=== PATIENT | male | born 1970 | race Caucasian/White ===

== ENCOUNTER 2019-07-03 09:04 | Emergency (ER) | payer MEDICAID, OTHER ==
[~2019-07-03] VITALS: Ht 188 cm; Wt 82.0 kg
[~2019-07-03 09:04] MED LIST: CLON2TAB PO; HYDR-519 PO; KEPP500 PO; OXYC15TA88 PO; QUET300T2 PO
[2019-07-03] MEDS ORDERED: MAGNESIUM/ALUMINUM HYDROXIDE/SIMETHICONE 30ML UDC PO STA (11:58)
[2019-07-03] MEDS ORDERED: CLONAZEPAM 1MG TABLET PO ONE (12:00)
[2019-07-03] MEDS ORDERED: LEVETIRACETAM 500MG TABLET PO ONE (12:00)
[2019-07-03 12:19] LABS: BASOPHILS % 0.8 % (0.0-2.0); EOSINOPHILS % 0.1 % (0.0-5.0); HEMATOCRIT. 39.7 % (42.0-52.0); HEMOGLOBIN. 13.3 g/dL (14.0-18.0); LYMPHOCYTES % 14.1 % (20.0-50.0); MEAN CORPUSCULAR HEMOGLOBIN 30.3 pg (28.0-32.0); MEAN CORPUSCULAR VOLUME 90.2 fL (80.0-94.0); MEAN PLATELET VOLUME 6.5 fl (7.4-10.4); MONOCYTES % 6.6 % (2.0-8.0); NEUTROPHILS % 78.4 % (40.0-76.0); PLATELET 355 x1000/uL (130-400); RED CELL DISTRIBUTION WIDTH 14.8 % (11.6-14.6)
[2019-07-03 12:23] LABS: CHLORIDE 103 mEq/L (98-107)
[2019-07-03 12:53] VITALS: BP 126/84
== END 2019-07-03 12:53 | disposition home or self-care (01) ==
LOC: ER 09:25
DX: R10.13 Epigastric pain (principal); F31.9 Bipolar disorder, unspecified; F15.10 Other stimulant abuse, uncomplicated; K76.9 Liver disease, unspecified; Z88.8 Allergy status to other drugs, medicaments and biological substances; Z88.2 Allergy status to sulfonamides; Z79.899 Other long term (current) drug therapy
CPT/HCPCS: 36415; 99284

== ENCOUNTER 2023-01-24 07:08 | Emergency (ER) | payer MEDICAID, OTHER ==
[~2023-01-24] VITALS: Ht 190.5 cm; Wt 84.0 kg
[~2023-01-24 07:08] MED LIST changes: +OXYC-580 PO; -OXYC15TA88 PO
[2023-01-24] MEDS ORDERED: LEVETIRACETAM 1000MG PREMIX 100 ML IV ONE (07:45)
[2023-01-24 08:25] LABS: BASOPHILS % 0.3 % (0.0-2.0); EOSINOPHILS % 0.5 % (0.0-5.0); HEMATOCRIT. 40.7 % (42.0-52.0); LYMPHOCYTES % 10.6 % (20.0-50.0); MEAN CORPUSCULAR HEMOGLOBIN 31.8 pg (28.0-32.0); MEAN CORPUSCULAR VOLUME 92.3 fL (80.0-94.0); MEAN PLATELET VOLUME 7.2 fl (7.4-10.4); MONOCYTES % 6.9 % (2.0-8.0); NEUTROPHILS % 81.7 % (40.0-76.0); PLATELET 274 x1000/uL (130-400); RED BLOOD CELL COUNT 4.41 mill/uL (4.7-6.1); RED CELL DISTRIBUTION WIDTH 13.8 % (11.6-14.6)
[2023-01-24 08:28] LABS: CHLORIDE 103 mEq/L (98-107)
[2023-01-24 08:39] LABS: ETHANOL BLOOD < 10 mg/dL
[2023-01-24] MEDS ORDERED: LORAZEPAM 2MG/ML CPJ IV ONE (09:15)
[2023-01-24] MEDS ORDERED: IBUPROFEN 400MG TABLET PO ONE (09:15)
[2023-01-24] MEDS ORDERED: CHLORDIAZEPOXIDE 25MG CAPSULE PO ONE (09:15)
[2023-01-24 09:38] LABS: BG BASE EXCESS -2.8 mmol/L (-2.0-2.0); BG CARBOXYHEMOGLOBIN 1.4 % (0.5-1.5); BG DEOXYHEMOGLOBIN 1.9 % (0.0-5.0); BG FRACTION INSPIRED OXYGEN 21; BG HCO3 ACT 18.9 mmol/L (22.0-26.0); BG METHEMOGLOBIN 0.3 % (0.0-1.5); BG OXYGEN SATURATION 98.1 % (92.0-98.5); BG OXYHEMOGLOBIN 96.4 % (94.0-97.0); BG PCO2 25.8 mmHg (35.0-45.0); BG PH 7.482 (7.350-7.450); BG PO2 105.8 mmHg (75.0-100.0); BG SAMPLE SITE RIGHT RADIAL; BG TOTAL HEMOGLOBIN 14.7 g/dL (12.0-18.0); BG VENT MODE ROOM AIR
[2023-01-24 09:45] VITALS: BP 122/75
== END 2023-01-24 09:50 | disposition home or self-care (01) ==
LOC: ER 07:08
DX: R56.9 Unspecified convulsions (principal); F31.9 Bipolar disorder, unspecified; F19.90 Other psychoactive substance use, unspecified, uncomplicated; Z88.8 Allergy status to other drugs, medicaments and biological substances
CPT/HCPCS: 36415; 36600; 80053; 80320; 82375; 82805; 82962; 85025; 96365; 99284; J1953; Z7610; G0480

== ENCOUNTER 2023-01-24 17:46 | Emergency (ER) | payer MEDICAID ==
[~2023-01-24] VITALS: Ht 182.9 cm; Wt 84.0 kg
[2023-01-24 17:51] VITALS: BP 128/82
[2023-01-24 18:38] LABS: CHLORIDE 105 mEq/L (98-107)
[2023-01-24 18:51] LABS: ETHANOL BLOOD 112 mg/dL
[2023-01-24 19:28] LABS: BASOPHILS % 0.6 % (0.0-2.0); EOSINOPHILS % 1.7 % (0.0-5.0); HEMATOCRIT. 41.9 % (42.0-52.0); HEMOGLOBIN. 14.5 g/dL (14.0-18.0); LYMPHOCYTES % 22.3 % (20.0-50.0); MEAN CORPUSCULAR HEMOGLOBIN 31.9 pg (28.0-32.0); MEAN CORPUSCULAR VOLUME 92.5 fL (80.0-94.0); MEAN PLATELET VOLUME 6.8 fl (7.4-10.4); MONOCYTES % 10.6 % (2.0-8.0); NEUTROPHILS % 64.8 % (40.0-76.0); PLATELET 294 x1000/uL (130-400); RED BLOOD CELL COUNT 4.53 mill/uL (4.7-6.1); RED CELL DISTRIBUTION WIDTH 13.9 % (11.6-14.6)
== END 2023-01-24 20:25 | disposition left against medical advice (07) ==
LOC: ER 17:46
DX: R56.9 Unspecified convulsions (principal)
CPT/HCPCS: 36415; 80053; 80307; 80320; 80329; 85025; 99283; G0480